=== PATIENT | male | born 1965 | race Caucasian/White ===

== ENCOUNTER 2022-04-21 14:07 | Emergency (ER) | payer OTHER ==
[~2022-04-21] VITALS: Ht 169.7 cm; Wt 81.4 kg
[2022-04-21 14:20] VITALS: BP 115/53
--- NOTE | 2022-04-21 14:26 | NUR ---
PT AMB TO BED 12. Addendum: 04/21/22 at 1523 by [email or web address] CHEYENNE DUMONT. 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
--- NOTE | 2022-04-21 14:29 | NUR ---
WALKED IN C/O MIDSTERNAL CP ONSET YESTERDAY. PT STATES HX ACID REFLUX. DENIES ANY CARDIAC HISTORY. CP IS NONRADIATING. VITALS STABLE. DENIES ANY TRAUMA OR INJURY TO CHEST. PMH: NONE NKA
[2022-04-21 14:30] VITALS: BP 118/65
[2022-04-21] MEDS ORDERED: OMEP40EC24 PO (15:29)
--- NOTE | 2022-04-21 15:34 | NUR ---
Patient discharged with v/s stable. Written and verbal after care instructions given and explained. Patient alert, oriented and verbalized understanding of instructions. Ambulatory with steady gait. All questions addressed prior to discharge. ID band removed. Patient advised to follow up with PMD. Rx of PRILOSEC given. Patient educated on indication of medication including possible reaction and side effects. Opportunity to ask questions provided and answered.
== END 2022-04-21 15:34 | disposition home or self-care (01) ==
LOC: MED 14:07
DX: R10.13 Epigastric pain (principal); R07.9 Chest pain, unspecified
CPT/HCPCS: 93005; 99283